=== PATIENT | male | born 1965 | race Caucasian/White ===

== ENCOUNTER 2018-01-24 09:23 | Emergency (ER) | payer BC ==
[~2018-01-24] VITALS: Ht 185.4 cm; Wt 88.2 kg
[2018-01-24] MEDS ORDERED: ZOFRAN ODT4 MG PO (09:43)
[2018-01-24 11:21] VITALS: BP 117/79; PULSE 65
== END 2018-01-24 11:22 | disposition home or self-care (01) ==
LOC: COL.ER 09:23
DX: F10.129 Alcohol abuse with intoxication, unspecified (principal); R11.2 Nausea with vomiting, unspecified
CPT/HCPCS: J1885; J2405; J2550; J7030